=== PATIENT | female | born 1965 | race African-American/Black ===

== ENCOUNTER 2016-12-03 15:14 | Emergency (ER) | payer OTHER ==
[~2016-12-03] VITALS: Ht 165.1 cm; Wt 86.8 kg
[2016-12-03 15:54] LABS: EOSINOPHIL COUNT 0.1 K/uL (0-0.3); HEMATOCRIT 38.7 % (36.0-46.0); IMMATURE GRANULOCYTE (%) 0.3 % (0.0-0.7); INSTRUMENT ABS NEUTROPHIL CT 2.7 K/uL; LYMPHOCYTE COUNT 2.7 K/uL (1.0-2.8); MCH 26.1 PG (29.0-34.0); MCHC 31.5 G/DL (30.0-36.0); MCV 82.7 FL (83-99); MONOCYTE (%) 9.3 % (3-12); MONOCYTE COUNT 0.6 K/uL (0-0.8); NEUTROPHIL (%) 44.1 % (45-76); NEUTROPHIL COUNT 2.7 K/uL (1.8-6.4); PLATELET COUNT 272 K/uL (156-360); RBC DIS.WIDTH-CV 15.6 % (11.8-14.6); RBC DIS.WIDTH-SD 46.7 % (39-53); RED BLOOD COUNT 4.68 M/uL (3.80-5.20); WHITE BLOOD COUNT 6.1 K/uL (4.1-10.2)
[2016-12-03 16:01] LABS: ADD MIUA? YES; BILIRUBIN NEGATIVE; BLOOD SMALL; COLOR YELLOW ((YELLOW)); GLUCOSE (STRIP) NEGATIVE; KETONES NEGATIVE; LEUKOCYTES NEGATIVE; NITRITE NEGATIVE; PROTEIN (STRIP) 30; SPECIFIC GRAVITY 1.025 (1.000-1.030); UROBILINOGEN 0.2 MG/DL (0.2-1.0)
[2016-12-03 16:05] LABS: BACTERIA NONE SEEN /HPF; EPITHELIAL CELLS 1+ /HPF; MUCUS TRACE /LPF; RED BLOOD CELLS 0-5 /HPF (0-5); WHITE BLOOD CELLS 0-5 /HPF (0-5)
[2016-12-03 16:07] LABS: CHLORIDE 105 mEq/L (99-109); POTASSIUM 3.8 mEq/L (3.7-5.4); SODIUM 139 mEq/L (136-147)
[2016-12-03 16:09] LABS: GLUCOSE 94 mg/dL (70-99)
[2016-12-03 16:10] LABS: ANION GAP 9 MEQ/L (2-14)
[2016-12-03 16:11] LABS: TOTAL BILIRUBIN 0.3 mg/dL (0.0-1.0)
[2016-12-03 16:12] LABS: ALKALINE PHOSPHATASE 79 IU/L (3-129)
[2016-12-03 16:13] LABS: GFR ESTIMATE (CALCULATED) > 59 mL/min/
[2016-12-03 16:14] LABS: UREA NITROGEN (BUN) 21 mg/dL (9-23)
[2016-12-03 16:16] LABS: LIPASE 26 U/L (1.0-51.0)
[2016-12-03 16:22] LABS: QUANTITATIVE HCG < 4.0 MIU/ML
[2016-12-03] MEDS ORDERED: INDOCIN50 MG PO (16:55)
[2016-12-03] MEDS ORDERED: FLEXERIL10 MG PO (16:55)
[2016-12-03 17:32] VITALS: BP 151/92
== END 2016-12-03 17:32 | disposition home or self-care (01) ==
LOC: EME 15:14
PROVIDERS: Physician Assistant
DX: M54.5 Low back pain (principal); R03.0 Elevated blood-pressure reading, without diagnosis of hypertension; R19.7 Diarrhea, unspecified; R51 Headache; R10.9 Unspecified abdominal pain
CPT/HCPCS: 80048; 80053; 81003; 83690; 84702; 85025; 99281; 99284